=== PATIENT | male | born 1985 | race Two or more races ===

== ENCOUNTER 2022-12-28 18:33 | Emergency (ER) | payer OTHER ==
[~2022-12-28] VITALS: Ht 175.3 cm; Wt 99.8 kg
[~2022-12-28 18:33] MED LIST: BICILLIN; DOLOGEN CAPLET1 EACH PO; ORPH100T PO; TUSSI PRES-B L120 M1 PO
== END 2022-12-28 20:13 | disposition home or self-care (01) ==
LOC: ER 18:33
DX: M79.672 Pain in left foot (principal)

== ENCOUNTER 2023-05-16 08:17 | Emergency (ER) | payer OTHER ==
[~2023-05-16] VITALS: Ht 175.3 cm; Wt 90.7 kg
[2023-05-16 09:34] LABS: HEMATOCRIT 44.1 % (39.0-48.0); MEAN CELL VOLUME 87.9 fL (80.0-100.00); MEAN CORPUSCULAR HEMOGLOBIN 29.9 pg (27.00-32.0); PLATELET COUNT 198 K/uL (150-450); RED BLOOD COUNT 5.01 M/uL (4.00-6.00); RED CELL DISTRIBUTION WIDTH 13.2 % (11.5-14.5)
[2023-05-16 09:37] LABS: CALCIUM 9.7 mg/dL (8.5-10.1); CREATININE SERUM 1.18 mg/dL (0.70-1.30); GFR 69.46; POTASSIUM 3.7 mEq/L (3.5-5.1)
== END 2023-05-16 10:12 | disposition home or self-care (01) ==
LOC: ER
PROVIDERS: General Practice
DX: M25.572 Pain in left ankle and joints of left foot (principal); Z88.0 Allergy status to penicillin

== ENCOUNTER 2024-03-04 19:27 | Emergency (ER) | payer OTHER ==
[~2024-03-04] VITALS: Ht 167.6 cm; Wt 104.3 kg
[2024-03-04] MEDS ORDERED: KETOROLAC TROMETHAMINE 60 MG VIAL IM ONE ×2 (20:38→20:45)
[2024-03-04] MEDS ORDERED: TRAMADOL HCL25 MG PO (22:19)
[2024-03-04] MEDS ORDERED: MEDROLPACK PO (22:19)
== END 2024-03-04 22:30 | disposition home or self-care (01) ==
LOC: ER 19:28
DX: M77.9 Enthesopathy, unspecified (principal); Z88.0 Allergy status to penicillin; Z87.09 Personal history of other diseases of the respiratory system

== ENCOUNTER 2024-03-08 23:21 | Emergency (ER) | payer OTHER ==
[~2024-03-08] VITALS: Ht 175.3 cm; Wt 104.3 kg
[~2024-03-08 23:21] MED LIST changes: +MEDROLPACK PO; +TRAMADOL HCL25 MG PO
[2024-03-09] MEDS ORDERED: KETOROLAC TROMETHAMINE 60 MG VIAL IM STA (01:03)
[2024-03-09] MEDS ORDERED: TRIAMCINOLONE ACETONIDE 40 MG/ML VIAL IM STA (01:04)
[2024-03-09] MEDS ORDERED: KETO10TA2 PO (01:08)
[2024-03-09] MEDS ORDERED: KETOROLAC TROMETHAMINE 60 MG VIAL IM ONE (01:11)
[2024-03-09] MEDS ORDERED: TRIAMCINOLONE ACETONIDE 40 MG/ML VIAL ONE (01:11)
== END 2024-03-09 01:19 ==
LOC: ER 23:22
DX: S99.822A Other specified injuries of left foot, initial encounter (principal)

== ENCOUNTER 2025-03-30 22:36 | Emergency (ER) | payer OTHER ==
[~2025-03-30] VITALS: Ht 167.6 cm; Wt 95.3 kg
[~2025-03-30 22:36] MED LIST changes: +KETO10TA2 PO
[2025-03-31] MEDS ORDERED: ONDANSETRON HCL 2 MG/ML VIAL IV STA (02:23)
[2025-03-31] MEDS ORDERED: METHYLPREDNISOLONE SOD SUCC 125 MG VIAL IV STA (02:23)
[2025-03-31] MEDS ORDERED: DIPHENHYDRAMINE HCL 50 MG/ML VIAL 1ML IV STA (02:23)
[2025-03-31] MEDS ORDERED: NAPHAZOLINE HCL/PHENIRAMINE 20 DR/ML DROPS OP STA (02:24)
[2025-03-31] MEDS ORDERED: GENTAMICIN SULFATE 0.15 MG/DR DROPS 5ML OP STA (02:25)
[2025-03-31] MEDS ORDERED: REDNESS RELIEF15 ML OP (04:46)
[2025-03-31] MEDS ORDERED: GENTAMICIN SULFA5 ML OP (04:46)
[2025-03-31] MEDS ORDERED: BENADRYL25 MG PO (04:47)
[2025-03-31] MEDS ORDERED: ZITHROMAX500 MG PO (04:47)
== END 2025-03-31 04:56 ==
LOC: ER 22:36
DX: H10.9 Unspecified conjunctivitis (principal); Z88.0 Allergy status to penicillin